=== PATIENT | female | born 1960 | race Caucasian/White ===

== ENCOUNTER 2023-04-26 06:12 | Day surgery (SDC) | payer MEDICARE ==
[2023-04-26] MEDS ORDERED: Lactated Ringers 1,000 ML IV SCH (06:30)
[2023-04-26] MEDS ORDERED: Xylocaine-Mpf 2% 5 Ml Vial ONE (07:13)
[2023-04-26] MEDS ORDERED: DIPRIVAN 200 MG/20 ML IV ONE ×2 (07:13→08:02)
[2023-04-26] MEDS ORDERED: Versed 2 MG/2 ML Injection ONE (07:20)
[2023-04-26 08:49] VITALS: O2SAT 98
[2023-04-26 08:58] VITALS: BP 132/82; PULSE 72
--- NOTE | 2023-04-26 09:28 | OP ---
SURGERY DATE/TIME: 04/26/2023 0742 PREOPERATIVE DIAGNOSIS: Change in bowel habits. POSTOPERATIVE DIAGNOSES: 1) Normal colon. 2) Sigmoid diverticulosis. PROCEDURE: Colonoscopy. SURGEON: Miki Barrios M.D. ANESTHESIA: MAC by Jitendra Wang CRNA. ESTIMATED BLOOD LOSS: None. SPECIMENS: None. DESCRIPTION OF PROCEDURE: After informed written consent was obtained, the patient was taken to the endoscopy suite. She was placed in left lateral decubitus position and anesthesia was titrated to desired level of consciousness. Digital rectal exam showed normal sphincter tone and no internal lesions. The scope was inserted into the rectum and sequentially the entire colonic mucosa was traversed. The level of cecum was reached and verified with direct visualization of the ileocecal valve. Upon withdrawal careful mucosal inspection revealed scattered diverticula mostly focused in the sigmoid colon. No other mucosal abnormalities were encountered. The patient had good prep. Prior to withdrawal retroflexion showed no internal lesions. The scope was removed. The patient was transferred to the recovery room in good condition.
== END 2023-04-26 09:00 | disposition home or self-care (01) ==
LOC: SDC 06:12
PROVIDERS: ATTEND Family Medicine
DX: K57.30 Diverticulosis of large intestine without perforation or abscess without bleeding (principal); R19.4 Change in bowel habit
CPT/HCPCS: 93005; J2250; J2704